=== PATIENT | male | born 1990 | race Caucasian/White ===

== ENCOUNTER 2020-01-29 05:55 | Emergency (ER) | payer OTHER, SELFPAY ==
--- NOTE | 2020-01-29 06:07 | ED.GENADULT ---
HPI - General Adult <Vito Lee DO - Last Filed: 01/29/20 18:08> General Chief complaint: Abdominal Pain Stated complaint: vomiting/body aches,diarrhea Time Seen by Provider: 01/29/20 05:59 Source: patient Mode of arrival: Ambulatory Limitations: no limitations History of Present Illness HPI narrative: Patient is a 29-year-old male. History of pyloric stenosis with surgical repair back when he was a child here for evaluation of approximately 1 week of nausea vomiting and diarrhea. 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 There are no reports of GI issues at that facility. Patient reports that he is having some abdominal pain but that is associated with the vomiting and diarrhea. No blood in his stool or his vomit. He did have a nose bleed yesterday after vomiting but that has since resolved. No recent antibiotics. No recent travel. Related Data Previous Rx's Medication Instructions Recorded ondansetron 4 mg PO Q8H #10 tab 01/29/20 Allergies Allergy/AdvReac Type Severity Reaction Status Date / Time Penicillins Allergy Severe Anaphylaxis Verified 01/29/20 06:16 Review of Systems <Vito Lee DO - Last Filed: 01/29/20 18:08> Constitutional Constitutional: Reports body ache(s), Reports fatigue, Denies fever(s) and Denies headache(s) ENT Ears, Nose, Mouth, and Throat: Denies headache(s) Cardiovascular Cardiovascular: Denies chest pain and Denies dyspnea Respiratory Respiratory: Denies cough and Denies dyspnea Gastrointestinal Gastrointestinal: Reports abdominal pain, Reports diarrhea, Reports nausea and Reports vomiting Genitourinary Genitourinary: Denies dysuria Genitourinary: Denies dysuria Musculoskeletal Musculoskeletal: Reports myalgias Integumentary/Breasts Skin/Breast: Denies rash Neurologic Neurologic: Denies behavioral changes and Denies headache(s) Psychiatric Psychiatric: Denies behavioral changes Endocrine Endocrine: Reports fatigue Hematologic/Lymphatic Hematologic/Lymphatic: Denies easy bleeding and Denies easy bruising Allergic/Immunologic Allergic/Immunologic: Denies urticaria Patient History <Vito eLe DO - Last Filed: 01/29/20 18:08> Medical History Hypertension (Acute) Pyloric stenosis (Acute) Surgical History History of repair of pyloric stenosis (Acute) Social History Smoking Status: Current every day smoker Exam <DO Zelda Escalante Last Filed: 01/29/20 18:08> Initial Vital Signs Initial Vital Signs: Vital Signs Temperature 97.9 F 01/29/20 06:08 Pulse Rate 133 H 01/29/20 06:08 Respiratory Rate 01/29/20 06:08 Blood Pressure 143/84 H 01/29/20 06:08 Pulse Oximetry 100 01/29/20 06:08 Const General: cooperative, comfortable and well developed Limitations: mental status not altered HENMT Head: normal to inspection and normocephalic Resp Effort & Inspection: normal respiratory effort Auscultation: clear to auscultation bilaterally Cardio Rate: tachycardic Rhythm: regular rhythm GI Inspection: non-distended Palpation: soft, No firm, No guarding and tender (Diffusely tender) Skin Lesions: no lesions Rashes: no rashes Neuro General: patient alert and patient awake Cognition: normal cognition Speech: speech normal Extrem General: normal to inspection and capillary refill normal Psych Appearance: grossly normal and well kempt <Noelle Pina DO - Last Filed: 01/29/20 13:37> Initial Vital Signs Initial Vital Signs: Vital Signs Temperature 97.9 F 01/29/20 06:08 Pulse Rate 133 H 01/29/20 06:08 Respiratory Rate 01/29/20 06:08 Blood Pressure 143/84 H 01/29/20 06:08 Pulse Oximetry 100 01/29/20 06:08 Scores <DO Zelda Escalante Last Filed: 01/29/20 18:08> GCS [place] coma scale eye opening: Spontaneous [place] coma scale verbal response: Orientated [place] coma scale motor response: Obey commands Jhon coma scale total score: 15 Course <DO Zelda Escalante Last Filed: 01/29/20 18:08> Orders Ordered: Discontinued Medications Sodium Chloride (Normal Saline 0.9%) 1,000 mls @ 1,000 mls/hr IV BOLUS ONE Stop: 01/29/20 07:06 Last Infusion: 01/29/20 07:30 Dose: 0 mls/hr Documented by: Admin: 01/29/20 06:15 Dose: 1,000 mls/hr Documented by: CHANEL Sodium Chloride (Normal Saline 0.9%) 1,000 mls @ 1,000 mls/hr IV BOLUS ONE Stop: 01/29/20 10:30 Last Infusion: 01/29/20 11:30 Dose: 0 mls/hr Documented by: Admin: 01/29/20 09:40 Dose: 1,000 mls/hr Documented by: DIAMOND Ketorolac Tromethamine (Toradol) 30 mg IV NOW ONE Stop: 01/29/20 06:44 Last Admin: 01/29/20 06:56 Dose: 30 mg Documented by: ALAYNA Morphine Sulfate (Morphine) 4 mg IV NOW ONE Stop: 01/29/20 08:12 Last Admin: 01/29/20 08:16 Dose: 4 mg Documented by: DIAMOND Ondansetron HCl (Zofran) 4 mg IV NOW ONE Stop: 01/29/20 06:21 Last Admin: 01/29/20 06:24 Dose: 4 mg Documented by: JULIO Ondansetron HCl (Zofran) 4 mg IV NOW ONE Stop: 01/29/20 09:32 Last Admin: 01/29/20 09:40 Dose: 4 mg Documented by: DIAMOND Pantoprazole Sodium (Protonix) 40 mg IV NOW ONE Stop: 01/29/20 09:32 Last Admin: 01/29/20 09:40 Dose: 40 mg Documented by: DIAMOND Vital Signs Vital signs: Vital Signs - 8 hr 01/29/20 11:42 Pulse Rate 91 H Respiratory Rate 22 Blood Pressure [Right Arm] 125/73 Pulse Oximetry 94 <Noelle Pina DO - Last Filed: 01/29/20 13:37> Orders Ordered: Discontinued Medications Sodium Chloride (Normal Saline 0.9%) 1,000 mls @ 1,000 mls/hr IV BOLUS ONE Stop: 01/29/20 07:06 Last Infusion: 01/29/20 07:30 Dose: 0 mls/hr Documented by: Admin: 01/29/20 06:15 Dose: 1,000 mls/hr Documented by: CHANEL Sodium Chloride (Normal Saline 0.9%) 1,000 mls @ 1,000 mls/hr IV BOLUS ONE Stop: 01/29/20 10:30 Last Infusion: 01/29/20 11:30 Dose: 0 mls/hr Documented by: Admin: 01/29/20 09:40 Dose: 1,000 mls/hr Documented by: DIAMOND Ketorolac Tromethamine (Toradol) 30 mg IV NOW ONE Stop: 01/29/20 06:44 Last Admin: 01/29/20 06:56 Dose: 30 mg Documented by: ALAYNA Morphine Sulfate (Morphine) 4 mg IV NOW ONE Stop: 01/29/20 08:12 Last Admin: 01/29/20 08:16 Dose: 4 mg Documented by: DIAMOND Ondansetron HCl (Zofran) 4 mg IV NOW ONE Stop: 01/29/20 06:21 Last Admin: 01/29/20 06:24 Dose: 4 mg Documented by: JULIO Ondansetron HCl (Zofran) 4 mg IV NOW ONE Stop: 01/29/20 09:32 Last Admin: 01/29/20 09:40 Dose: 4 mg Documented by: DIAMOND Pantoprazole Sodium (Protonix) 40 mg IV NOW ONE Stop: 01/29/20 09:32 Last Admin: 01/29/20 09:40 Dose: 40 mg Documented by: DIAMOND Vital Signs Vital signs: Vital Signs - 8 hr 01/29/20 11:42 Pulse Rate 91 H Respiratory Rate 22 Blood Pressure [Right Arm] 125/73 Pulse Oximetry 94 Medical Decision Making <Vito Lee DO - Last Filed: 01/29/20 18:08> Lab Data Lab results reviewed: Yes I reviewed the patient's lab results. Result diagrams: 01/29/20 06:12 01/29/20 06:12 Labs: Lab Results 01/29/20 01/29/20 01/29/20 Range/Units 06:12 06:12 06:12 WBC 8.3 (4.5-11.0) X10^3/uL RBC 5.19 (4.5-5.9) X10^6/uL Hgb 16.1 (13.5-17.5) g/dL Hct 47.2 (41-53) % MCV 90.9 (80-100) fL MCH 31.1 (26-34) PG MCHC 34.2 (30-36) % RDW 13.3 (11.6-14.8) % Plt Count 235 (150-400) X10^3/uL Neut % (Auto) 48.8 L (50-75) % Lymph % (Auto) 37.6 (25-40) % [place] % (Auto) 10.0 (3-14) % Eos % (Auto) 2.7 (2-4) % Baso % (Auto) 0.9 (0-2) % Neut # (Auto) 4100 (0969-4337) /uL Lymph # (Auto) 3100 (8730-0501) /uL [place] # (Auto) 800 (0-900) /uL Eos # (Auto) 200 (0-450) /uL Baso # (Auto) 100 (0-100) /uL Sodium 140 (137-145) mmol/L Potassium 3.5 (3.4-5.1) mmol/L Chloride 104 (98-107) mmol/L Carbon Dioxide 29 (22-32) mmol/L BUN 15 (9-20) mg/dL Creatinine 0.77 (0.66-1.25) mg/dL Estimated GFR > 60.0 (>60) mL/min BUN/Creatinine Ratio 19.5 (6-22) Glucose 104 H (70-100) mg/dL Lactate 1.4 (0.7-2.1) mmol/L Calcium 9.4 (8.4-10.2) mg/dL Total Bilirubin 0.6 (0.2-1.3) mg/dL AST 36 (17-59) IU/L ALT 40 (<50) IU/L Alkaline Phosphatase 83 (38-126) U/L Total Protein 7.4 (6.3-8.2) g/dL Albumin 4.4 (3.5-5.0) g/dL Globulin 3.0 (1.7-4.1) g/dL Albumin/Globulin Ratio 1.5 (1.0-2.8) Lipase 63 (23-300) U/L Urine RBC (0-5/HPF) Urine WBC (0-5/HPF) Urine Bacteria (None) Urine Mucus (Negative) Ur Culture Indicated? 01/29/20 Range/Units 06:58 WBC (4.5-11.0) X10^3/uL RBC (4.5-5.9) X10^6/uL Hgb (13.5-17.5) g/dL Hct (41-53) % MCV (80-100) fL MCH (26-34) PG MCHC (30-36) % RDW (11.6-14.8) % Plt Count (150-400) X10^3/uL Neut % (Auto) (50-75) % Lymph % (Auto) (25-40) % [place] % (Auto) (3-14) % Eos % (Auto) (2-4) % Baso % (Auto) (0-2) % Neut # (Auto) (2977-6694) /uL Lymph # (Auto) (2816-2961) /uL [place] # (Auto) (0-900) /uL Eos # (Auto) (0-450) /uL Baso # (Auto) (0-100) /uL Sodium (137-145) mmol/L Potassium (3.4-5.1) mmol/L Chloride (98-107) mmol/L Carbon Dioxide (22-32) mmol/L BUN (9-20) mg/dL Creatinine (0.66-1.25) mg/dL Estimated GFR (>60) mL/min BUN/Creatinine Ratio (6-22) Glucose (70-100) mg/dL Lactate (0.7-2.1) mmol/L Calcium (8.4-10.2) mg/dL Total Bilirubin (0.2-1.3) mg/dL AST (17-59) IU/L ALT (<50) IU/L Alkaline Phosphatase (38-126) U/L Total Protein (6.3-8.2) g/dL Albumin (3.5-5.0) g/dL Globulin (1.7-4.1) g/dL Albumin/Globulin Ratio (1.0-2.8) Lipase (23-300) U/L Urine RBC None seen (0-5/HPF) Urine WBC None seen (0-5/HPF) Urine Bacteria Few (2-10) H (None) Urine Mucus 3+ H (Negative) Ur Culture Indicated? Cult not indicated Urine Dip Bedside Urine Glucose Negative Bedside Urine Bilirubin + 1 Bedside Urine Ketone +/- 5 Urine Specific Maria Stein 1.030 Bedside Urine Occult Blood - Negative Bedside Urine pH 5.5 Bedside Urine Protein +/- 15 Bedside Urine Urobilinogen +/- 1mg Bedside Urine Nitrite - Negative Bedside Urine Leukocytes - Negative Esterase Point of care testing: Urine Dip Bedside Urine Glucose Negative Bedside Urine Bilirubin + 1 Bedside Urine Ketone +/- 5 Urine Specific Maria Stein 1.030 Bedside Urine Occult Blood - Negative Bedside Urine pH 5.5 Bedside Urine Protein +/- 15 Bedside Urine Urobilinogen +/- 1mg Bedside Urine Nitrite - Negative Bedside Urine Leukocytes - Negative Esterase MDM Narrative Medical decision making narrative: Diffuse abdominal pain, tachycardic, receiving fluids, labs unremarkable, care turned over to day provider at change of shift to follow up. <Noelle Pina, DO - Last Filed: 01/29/20 13:37> Lab Data Lab results reviewed: Yes I reviewed the patient's lab results. Labs: Lab Results 01/29/20 01/29/20 01/29/20 Range/Units 06:12 06:12 06:12 WBC 8.3 (4.5-11.0) X10^3/uL RBC 5.19 (4.5-5.9) X10^6/uL Hgb 16.1 (13.5-17.5) g/dL Hct 47.2 (41-53) % MCV 90.9 (80-100) fL MCH 31.1 (26-34) PG MCHC 34.2 (30-36) % RDW 13.3 (11.6-14.8) % Plt Count 235 (150-400) X10^3/uL Neut % (Auto) 48.8 L (50-75) % Lymph % (Auto) 37.6 (25-40) % [place] % (Auto) 10.0 (3-14) % Eos % (Auto) 2.7 (2-4) % Baso % (Auto) 0.9 (0-2) % Neut # (Auto) 4100 (9566-2322) /uL Lymph # (Auto) 3100 (9275-4946) /uL [place] # (Auto) 800 (0-900) /uL Eos # (Auto) 200 (0-450) /uL Baso # (Auto) 100 (0-100) /uL Sodium 140 (137-145) mmol/L Potassium 3.5 (3.4-5.1) mmol/L Chloride 104 (98-107) mmol/L Carbon Dioxide 29 (22-32) mmol/L BUN 15 (9-20) mg/dL Creatinine 0.77 (0.66-1.25) mg/dL Estimated GFR > 60.0 (>60) mL/min BUN/Creatinine Ratio 19.5 (6-22) Glucose 104 H (70-100) mg/dL Lactate 1.4 (0.7-2.1) mmol/L Calcium 9.4 (8.4-10.2) mg/dL Total Bilirubin 0.6 (0.2-1.3) mg/dL AST 36 (17-59) IU/L ALT 40 (<50) IU/L Alkaline Phosphatase 83 (38-126) U/L Total Protein 7.4 (6.3-8.2) g/dL Albumin 4.4 (3.5-5.0) g/dL Globulin 3.0 (1.7-4.1) g/dL Albumin/Globulin Ratio 1.5 (1.0-2.8) Lipase 63 (23-300) U/L Urine RBC (0-5/HPF) Urine WBC (0-5/HPF) Urine Bacteria (None) Urine Mucus (Negative) Ur Culture Indicated? 01/29/20 Range/Units 06:58 WBC (4.5-11.0) X10^3/uL RBC (4.5-5.9) X10^6/uL Hgb (13.5-17.5) g/dL Hct (41-53) % MCV (80-100) fL MCH (26-34) PG MCHC (30-36) % RDW (11.6-14.8) % Plt Count (150-400) X10^3/uL Neut % (Auto) (50-75) % Lymph % (Auto) (25-40) % [place] % (Auto) (3-14) % Eos % (Auto) (2-4) % Baso % (Auto) (0-2) % Neut # (Auto) (3159-0060) /uL Lymph # (Auto) (6950-1307) /uL [place] # (Auto) (0-900) /uL Eos # (Auto) (0-450) /uL Baso # (Auto) (0-100) /uL Sodium (137-145) mmol/L Potassium (3.4-5.1) mmol/L Chloride (98-107) mmol/L Carbon Dioxide (22-32) mmol/L BUN (9-20) mg/dL Creatinine (0.66-1.25) mg/dL Estimated GFR (>60) mL/min BUN/Creatinine Ratio (6-22) Glucose (70-100) mg/dL Lactate (0.7-2.1) mmol/L Calcium (8.4-10.2) mg/dL Total Bilirubin (0.2-1.3) mg/dL AST (17-59) IU/L ALT (<50) IU/L Alkaline Phosphatase (38-126) U/L Total Protein (6.3-8.2) g/dL Albumin (3.5-5.0) g/dL Globulin (1.7-4.1) g/dL Albumin/Globulin Ratio (1.0-2.8) Lipase (23-300) U/L Urine RBC None seen (0-5/HPF) Urine WBC None seen (0-5/HPF) Urine Bacteria Few (2-10) H (None) Urine Mucus 3+ H (Negative) Ur Culture Indicated? Cult not indicated Urine Dip Bedside Urine Glucose Negative Bedside Urine Bilirubin + 1 Bedside Urine Ketone +/- 5 Urine Specific Maria Stein 1.030 Bedside Urine Occult Blood - Negative Bedside Urine pH 5.5 Bedside Urine Protein +/- 15 Bedside Urine Urobilinogen +/- 1mg Bedside Urine Nitrite - Negative Bedside Urine Leukocytes - Negative Esterase Point of care testing: Urine Dip Bedside Urine Glucose Negative Bedside Urine Bilirubin + 1 Bedside Urine Ketone +/- 5 Urine Specific Maria Stein 1.030 Bedside Urine Occult Blood - Negative Bedside Urine pH 5.5 Bedside Urine Protein +/- 15 Bedside Urine Urobilinogen +/- 1mg Bedside Urine Nitrite - Negative Bedside Urine Leukocytes - Negative Esterase Imaging Data CT scan - abdomen/pelvis: Radiologist's Impression: PROCEDURE: CT ABDOMEN PELVIS W CON INDICATIONS: PAIN vomiting hx pyloric stenosis TECHNIQUE: After the administration of intravenous contrast, 5 mm thick sections acquired from the diaphragm to the symphysis. 5 mm coronal and sagittal reformats were acquired. For radiation dose reduction, the following was used: automated exposure control, adjustment of mA and/or kV according to patient size. COMPARISON: None. FINDINGS: Image quality: Excellent. ABDOMEN: Lung bases: Lung bases are clear. Heart size is normal. Tiny hiatal hernia. Solid organs: There is hepatic steatosis. Liver is normal in size and enhancement. Gallbladder is normal. Biliary system is non dilated. Pancreas enhances normally. Spleen is normal in size and enhancement. No adrenal nodules. Kidneys demonstrate normal size and enhancement, without hydronephrosis. Peritoneum and bowel: Stomach is not distended. Gastric antrum/pylorus may be thickened. There are a few scattered colonic diverticula. Bowel loops demonstrate normal wall thickness and caliber. No free fluid or air. Nodes and vessels: No retroperitoneal or mesenteric adenopathy by size criteria. Aorta and inferior vena cava are normal in size. Miscellaneous: No ventral hernias. PELVIS: Genitourinary: Bladder wall thickness is normal. Miscellaneous: No inguinal hernias or adenopathy. Bones: No suspicious bony lesions. No vertebral body compression fractures. IMPRESSION: 1. Gastric antrum/pylorus may be thickened. Differential diagnosis include peptic ulcer disease, focal gastritis and artifact. There is no finding to suggest gastric outlet obstruction. 2. Tiny hiatal hernia. 3. Hepatic steatosis. 4. Mild diverticulosis without diverticulitis. Dictated by: Joseph Patton M.D. on 01/29/2020 at 8:30 ECG Data Attestation: I personally reviewed and interpreted this ECG as follows: Prior ECG tracings: not available for review Interpretation: Normal sinus rhythm rate 84 p.r. interval 148 QRS [address] elevation depression or T-wave inversion MDM Narrative Medical decision making narrative: Patient signed out to me by Dr. Lee I seen and evaluated patient myself. His labs have been reviewed and appear fairly normal. However he continues to have some epigastric pain. Heart rate intermittently spikes above 100. EKG is currently being done. He continues to have pain. Will get abdominal CT and EKG. Patient is tolerating oral fluids CT and blood work been reviewed and negative. He overall is feeling better. 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 A send out lab is sent. He does not have any respiratory symptoms Discharge Plan Departure Patient Disposition: Home Clinical Impression: Gastroenteritis Discharge Date/Time: 01/29/20 11:54 Instructions: Clear Liquid Diet, DI for Viral Gastroenteritis -- Adult Activity Restrictions/Additional Instructions: 1) You have been diagnosed with gastroenteritis Your COVID-19 test is pending and will take a couple of days recommend not returning to work until your symptoms have improved and until your test is back and negative 2) What to do: Drink frequent but small amounts of fluids. I recommend Gatorade or a Gatorade-like product, as it has small amounts of sugar and salts that improve fluid retention. May advance diet and increase as tolerated 3) Take medications as directed Zofran 4 mg every 8 hours if needed for nausea or vomiting 4) Follow up with your primary care provider in 2-3 days 5) Return to ER if you should have any new or worsening symptoms such as, unable to hold down fluids despite use of anti-nausea medications and the small volume oral rehydration strategy. Prescriptions: New ondansetron 4 mg tablet,disintegrating 4 mg PO Q8H Qty: 10 RF: 0 Stand Alone Forms: Work Release Note
[2020-01-29 06:08] VITALS: BP 143/84; PULSE 133; RESP 20; TEMP 36.6; O2SAT 100; BMI 31.5
[2020-01-29] MEDS: SODIUM CHLORIDE 0.9% 1,000 ML 1000 ML IV ×2 (06:15→09:40)
[2020-01-29 06:20] LABS: Add Manual Diff / Slide Review NO; Basophils Absolute Auto 100 /uL (0-100); Basophils Percent Auto 0.9 % (0-2); Eosinophils Absolute Auto 200 /uL (0-450); Eosinophils Percent Auto 2.7 % (2-4); Hematocrit 47.2 % (41-53); Hemoglobin 16.1 g/dL (13.5-17.5); Lymphocytes Absolute Auto 3100 /uL (1100-4500); Lymphocytes Percent Auto 37.6 % (25-40); Mean Corpuscular HGB Conc 34.2 % (30-36); Mean Corpuscular Hemoglobin 31.1 PG (26-34); Mean Corpuscular Volume 90.9 fL (80-100); Monocytes Absolute Auto 800 /uL (0-900); Neutrophils Absolute Auto 4100 /uL (1500-7000); Neutrophils Percent Auto 48.8 % (50-75); Platelet Count 235 X10^3/uL (150-400); Red Blood Cell Count 5.19 X10^6/uL (4.5-5.9); Red Cell Distribution Width 13.3 % (11.6-14.8); White Blood Cell Count 8.3 X10^3/uL (4.5-11.0)
[2020-01-29] MEDS: ONDANSETRON 4 MG/2 ML INJ IV ×2 (06:24→09:40)
[2020-01-29 06:29] LABS: Alanine Aminotransferase 40 IU/L (<50); Albumin 4.4 g/dL (3.5-5.0); Albumin Globulin Ratio 1.5 (1.0-2.8); Alkaline Phosphatase 83 U/L (38-126); Aspartate Aminotransferase 36 IU/L (17-59); BUN Creatinine Ratio 19.5 (6-22); Bilirubin Total 0.6 mg/dL (0.2-1.3); Blood Urea Nitrogen 15 mg/dL (9-20); Calcium 9.4 mg/dL (8.4-10.2); Carbon Dioxide 29 mmol/L (22-32); Chloride 104 mmol/L (98-107); Estimated Glomerular Filt Rate > 60.0 mL/min (>60); Glucose 104 mg/dL (70-100); HEMOLYSIS < 15 (0-50); Lipase 63 U/L (23-300); Potassium 3.5 mmol/L (3.4-5.1); Sodium 140 mmol/L (137-145); Total Protein 7.4 g/dL (6.3-8.2)
[2020-01-29 06:44] VITALS: BP 130/81; PULSE 98; RESP 20; O2SAT 99
[2020-01-29] MEDS: KETOROLAC 60 MG/2 ML VIAL 30 MG IV (06:56)
[2020-01-29 06:59] LABS: Lactate (Lactic Acid) 1.4 mmol/L (0.7-2.1)
[2020-01-29 07:19] LABS: RBC Urine None Seen (0-5/HPF); WBC Urine None Seen (0-5/HPF)
[2020-01-29 07:27] LABS: Bacteria Urine Few (2-10); Culture Indicated Urine Cult Not Indicated; Mucus Urine 3+ (Negative)
[2020-01-29 08:00] VITALS: BP 118/78; PULSE 109; RESP 19; O2SAT 99
--- NOTE | 2020-01-29 08:11 | DI.CT.S_ITS ---
PROCEDURE: CT ABDOMEN PELVIS W CON INDICATIONS: PAIN vomiting hx pyloric stenosis TECHNIQUE: After the administration of intravenous contrast, 5 mm thick sections acquired from the diaphragm to the symphysis. 5 mm coronal and sagittal reformats were acquired. For radiation dose reduction, the following was used: automated exposure control, adjustment of mA and/or kV according to patient size. COMPARISON: None. FINDINGS: Image quality: Excellent. ABDOMEN: Lung bases: Lung bases are clear. Heart size is normal. Tiny hiatal hernia. Solid organs: There is hepatic steatosis. Liver is normal in size and enhancement. Gallbladder is normal. Biliary system is non dilated. Pancreas enhances normally. Spleen is normal in size and enhancement. No adrenal nodules. Kidneys demonstrate normal size and enhancement, without hydronephrosis. Peritoneum and bowel: Stomach is not distended. Gastric antrum/pylorus may be thickened. There are a few scattered colonic diverticula. Bowel loops demonstrate normal wall thickness and caliber. No free fluid or air. Nodes and vessels: No retroperitoneal or mesenteric adenopathy by size criteria. Aorta and inferior vena cava are normal in size. Miscellaneous: No ventral hernias. PELVIS: Genitourinary: Bladder wall thickness is normal. Miscellaneous: No inguinal hernias or adenopathy. Bones: No suspicious bony lesions. No vertebral body compression fractures. IMPRESSION: 1. Gastric antrum/pylorus may be thickened. Differential diagnosis include peptic ulcer disease, focal gastritis and artifact. There is no finding to suggest gastric outlet obstruction. 2. Tiny hiatal hernia. 3. Hepatic steatosis. 4. Mild diverticulosis without diverticulitis. Dictated by: Joseph Patton M.D. on 01/29/2020 at 8:30 Approved by: Joseph Patton M.D. on 01/29/2020 at 8:37
[2020-01-29] MEDS: MORPHINE 4 MG/ML INJ IV (08:16)
[2020-01-29 08:30] VITALS: BP 131/76; PULSE 83; RESP 17; O2SAT 99
[2020-01-29] MEDS: PANTOPRAZOLE 40 MG VIAL IV (09:40)
[2020-01-29 10:00] VITALS: BP 118/73; PULSE 77; RESP 22; O2SAT 99
[2020-01-29 11:42] VITALS: BP 125/73; PULSE 91; RESP 22; O2SAT 94
[2020-02-01 03:08] LABS: COVID19 Sendout Not Detected (Not Detected)
== END 2020-01-29 11:54 | disposition home or self-care (01) ==
PROVIDERS: Emergency Medicine; Emergency Provider Emergency Medicine
DX: K52.9 Noninfective gastroenteritis and colitis, unspecified (principal); R10.9 Unspecified abdominal pain; R00.0 Tachycardia, unspecified; Z11.59 Encounter for screening for other viral diseases
CPT/HCPCS: 36415; 74177; 80053; 81003; 81015; 83605; 83690; 85025; 87635; 93005; 96361; 96374; 96375; 96376; 99284; C9113; J1885; J2270; J2405; Q9967